=== PATIENT | male | born 1995 | race Asian ===

== ENCOUNTER 2022-06-24 10:01 | Outpatient (CLI) | payer BC ==
[~2022-06-24 10:01] MED LIST: Magnevist 469MG/ML 20 ML VIAL ONE
== END 2022-06-24 10:02 | disposition home or self-care (01) ==
LOC: MRI 10:01
PROVIDERS: ATTEND Internal Medicine Rheumatology
DX: M46.1 Sacroiliitis, not elsewhere classified (principal)
CPT/HCPCS: 72197; A9579